=== PATIENT | male | born 1955 | race Caucasian/White ===

== ENCOUNTER 2020-03-27 01:28 | Outpatient (CLI) | payer BC, SELFPAY ==
--- NOTE | 2020-03-27 08:30 | DI.US_ITS ---
EXAM: US SCROTUM CLINICAL HISTORY: scrotal swelling,HYDROCELE,N43.3 TECHNIQUE: Ultrasound performed using standard protocol. COMPARISON: US RIGHT EXTREMITY ULTRASOUND from 05/25/2016 FINDINGS: Scrotal ultrasound was performed according to the usual protocol. There is a large left hydrocele an d small right hydrocele, left hydrocele is estimated 650 cc and right hydrocele at 110 cc. The testes show normal echotexture and vascular flow. No intra testicular mass. Unremarkable appear ance of the epididymi. Scrotal pearls appear to be present in the right hydrocele. IMPRESSION: Bilateral hydroceles, left greater than right. No significant findings involving the testes or epidi dymi. DATA REPOSITORY:
== END 2020-03-27 01:48 ==
PROVIDERS: PCP Internal Medicine; Visit Provider Nurse Practitioner Gerontology
DX: N50.89 Other specified disorders of the male genital organs (principal); N43.2 Other hydrocele
CPT/HCPCS: 76870

== ENCOUNTER 2020-04-05 07:38 | Outpatient (CLI) | payer BC, SELFPAY ==
[2020-04-05 19:47] LABS: COVID-19 RT-PCR UVMMC Result Negative (Negative)
== END 2020-04-05 07:58 ==
PROVIDERS: PCP Internal Medicine; Visit Provider Nurse Practitioner Gerontology
DX: Z01.818 Encounter for other preprocedural examination (principal); Z11.59 Encounter for screening for other viral diseases
CPT/HCPCS: U0003

== ENCOUNTER 2020-04-08 06:06 | Day surgery (SDC) | payer BC, SELFPAY ==
[2020-04-08 06:15] VITALS: BP 115/82; PULSE 56; RESP 18; TEMP 36.3; O2SAT 99
[2020-04-08] MEDS: Lactated Ringers 1,000 ML 80 ML IV (06:40)
--- NOTE | 2020-04-08 06:53 | W.PM.HP.N ---
Date of service: 04/08/20 Time of Service: 06:54 Assessment and Plan Assessment and plan (1) Hydrocele: Status: Acute Assessment and plan: For left hydrocelectomy History of Present Illness History of Present Illness Chief Complaint: Left Hydrocele Narrative: Spencer comes into the clinic today with a chief complaint of left testicle enlargement. He says that he noticed it over 1 year ago. He does not have any particular discomfort nor pain with this enlargement. He states that even when he was younger he thought his left testicle area was larger however it is more noticeable currently. He has not noticed any redness, drainage, bruising, or fluid leaking from the area. He denies fevers, chills, injury or trauma to the area. No family history of testicular cancer nor radiation to the area. He did have a vasectomy many years ago. No other surgeries to this area. He currently resides in [place] part of the year and has a PCP there. He has been evaluated with scrotal ultrasounds which confirm that the mass is a hydrocele. He still has no pain, but the size of the hydrocele interferes with some activities (such as golfing and walking). Review of Systems Narrative: No fevers or chills No vision change or dysphasia No diabetes or thyroid No shortness of breath, cough or hemoptysis No chest pain or palpitations No nausea, vomiting, hepatitis, ulcers, jaundice, diarrhea or constipation No seizures, strokes or peripheral neuropathy No bleeding disorders or anemia No gout. Hx knee replacement (more than 2 years ago) [facility] Medical History (Updated 04/08/20 @ 06:31 by Patti Hernandez RN) High cholesterol (Chronic) Hypertension (Chronic) Social History Smoking/Tobacco Use Status: Never Alcohol Intake: current Alcohol Intake frequency: a few times a week Alcohol type: beer, wine and hard liquor Drug use: Never Substance use type: does not use Do you feel safe at home: Yes Do you feel safe in your relationship?: Yes Meds Home Medications and Allergies Home Medications Medication Instructions Recorded Confirmed Type amlodipine 5 mg tablet 2.5 mg PO HS 03/12/20 04/08/20 History losartan 50 mg tablet 50 mg PO DAILY 03/12/20 04/08/20 History pravastatin 40 mg tablet 40 mg PO HS 03/12/20 04/08/20 History tamsulosin 0.4 mg capsule 0.4 mg PO DAILY #30 cap 03/12/20 04/08/20 Rx Allergies Allergy/AdvReac Type Severity Reaction Status Date / Time No Known Drug Allergies Allergy Unverified 04/08/20 06:30 Exam Const General: cooperative and no acute distress Neck Neck: supple Resp Effort & Inspection: normal respiratory effort Auscultation: clear to auscultation bilaterally Cardio Rate: regular rate Rhythm: regular rhythm GI Inspection: normal to inspection Palpation: soft and no masses Scrotum: hydrocele on the left Neuro General: patient alert and patient awake Results Last Vital Signs Temp 36.3 C L 04/08/20 06:15 Pulse 56 L 04/08/20 06:15 Resp 18 04/08/20 06:15 BP 115/82 04/08/20 06:15 Pulse Ox 99 04/08/20 06:15 COVID-19 Screening Have you, or has anyone in your household, traveled outside of [place] in the last 14 days?: NO Had IN PERSON contact w/suspected or confirmed C-19 person: No
[2020-04-08] MEDS: ceFAZolin 1 GM/50 ML BAG IVPB (07:39)
[2020-04-08] MEDS: Bupivacaine 0.25% Pres-Free 30 ML VIAL (08:18)
--- NOTE | 2020-04-08 08:18 | W.PM.DSUDISC ---
Discharge Plan Disposition Patient Disposition: HOME Condition: Stable Discharge Details Reason For Visit: hydrocele Attending Provider: Will Islas Primary Care Provider: Sharita Rivera Home Meds and New Rx's Prescriptions: New tramadol 50 mg tablet 50 mg PO Q6H MDD 4 PRN (Reason: pain) Qty: 12 RF: 0 ketorolac 10 mg tablet 10 mg PO Q6H PRN5 Days Qty: 20 RF: 0 No Action pravastatin 40 mg tablet 40 mg PO HS RF: 0 losartan 50 mg tablet 50 mg PO DAILY RF: 0 amlodipine 5 mg tablet 2.5 mg PO HS RF: 0 Hold Instructions: Home Medication placed on hold at Doctor's office tamsulosin 0.4 mg capsule 0.4 mg PO DAILY Qty: 30 RF: 0 Discharge Instructions Additional Instructions: OK to shower 04/09/2020 No straining or lifting over 10 pounds for 1 week No whittington swimming for 48 hours May get dressings wet and remove dressings in 24 hours Ice pack to scrotum (bag of frozen peas works well at home) Scrotal support F/U 1 to 2 weeks (can be with me or with SENIOR SAF[employer] MANAGEMENT CONSULTANT) Activity:: see above Remove Dressings/Wound Care:: 24 hours Shower/Bathe:: 24 hours Diet:: As Tolerated Discharge Orders Discharge Orders: Discharge Order (Routine); Ordered 04/08/20 Ordered By: Will Islas DS: Diagnosis Discharge Diagnosis (1) Hydrocele: Status: Acute
[2020-04-08 08:33] VITALS: BP 93/64; PULSE 68; RESP 12; TEMP 36.6; O2SAT 100
[2020-04-08 08:38] VITALS: BP 96/65; PULSE 69; RESP 12; TEMP 36.6; O2SAT 100
[2020-04-08 08:43] VITALS: BP 97/72; PULSE 67; RESP 11; TEMP 36.6; O2SAT 100
--- NOTE | 2020-04-08 08:44 | W.PM.OP ---
Date of service: 04/08/20 Time of Service: 08:44 Operative Note Operative Note DATE OF PROCEDURE: 04/08/20 PRE-OP DIAGNOSIS: Left hydrocele POST-OP DIAGNOSIS: same PROCEDURE: Left hydrocelectomy SURGEON: Will Islas [employer]: Andra Araujo ANESTHESIA: other (General with LMA) ESTIMATED BLOOD LOSS: 50 PATHOLOGY: none sent Patient was transported to: PACU Patient's condition: stable Indications: This is a 64-year-old gentleman with a long history of left sided scrotal swelling. He has been evaluated multiple times and the swelling was identified as a large hydrocele. He is not having any pain, but due to the size of the hydrocele, he has some limitations of activity. He presents now for hydrocelectomy Findings: 1. Large hydrocele 2. Keratin pearls Procedure Description: The patient was brought to the operating room on 04/08/2020. After successful induction of general anesthesia he was placed in the supine position. His genitalia was prepped and draped sterilely. A transverse incision was made along the rugal folds on the left hemiscrotum. The dartos muscle was then divided using the Bovie. A large hydrocele (still within the tunica vaginalis) was then identified. The entire testis was then delivered up through the scrotal incision. We took down the connective tissue attached to the tunica vaginalis using sharp and blunt dissection. We then divided the gubernaculum using the Bovie. We opened the anterior tunica vaginalis sharply and drained over 500 cc of yellow-tinged fluid. We opened the remainder of the tunica vaginalis anteriorly and identified multiple keratin pearls which were then removed. The testis was inspected and appeared normal. The redundant hydrocele sac was excised using the Bovie. The edges of the hydrocele sac were then reapproximated behind the testis using a running 3-0 chromic suture. A spermatic cord block was performed using quarter percent Marcaine. Once hemostasis was assured, we placed the testis back but within the left hemiscrotum. We reapproximated the left dartos muscle over top of the testis using running 3-0 chromic. A field block was performed around the incision using quarter percent Marcaine. The skin was then closed with simple interrupted 4-0 chromic suture. Dermabond was applied to the incision site followed by a fluff dressing and a scrotal support. The patient tolerated the procedure well with no complications. He was taken to to the recovery room in stable condition.
[2020-04-08 08:58] VITALS: BP 102/72; PULSE 73; RESP 11; TEMP 36.5; O2SAT 95
[2020-04-08 09:38] VITALS: BP 108/72; PULSE 51; RESP 17; TEMP 36.1; O2SAT 97
== END 2020-04-08 10:16 | disposition home or self-care (01) ==
PROVIDERS: PCP Internal Medicine; Visit Provider Urology
PROC: (CPT 55040; principal; 2020-04-08 07:30)
DX: N43.2 Other hydrocele (principal); I10 Essential (primary) hypertension
CPT/HCPCS: 55040; NC; J0690; J1885; J2001; J2405; J2704; J3010